=== PATIENT | female | born 1980 | race Caucasian/White ===

== ENCOUNTER 2021-06-20 12:35 | Emergency (ER) | payer OTHER, SELFPAY ==
[2021-06-20 13:05] VITALS: BP 101/71; PULSE 92; RESP 16; TEMP 36.7; O2SAT 99
[2021-06-20 13:20] VITALS: BP 101/71; PULSE 92; RESP 16; TEMP 36.7; O2SAT 99
--- NOTE | 2021-06-20 13:55 | ED.SKABFB ---
HPI - Skin/Abscess/Foreign Bdy General Chief complaint: Skin/Abscess/Foreign Body Stated complaint: rash Time Seen by Provider: 06/20/21 13:55 Source: patient Mode of arrival: ambulatory Limitations: no limitations History of Present Illness HPI narrative: Ana Armstrong is a 41 yo female with no PMH who comes to express care with hives on face eyes and extremities and and torso that started 2 days ago; took Benadryl last night but helped with the itching but the hives are still present although somewhat flatter according to the . Patient is unaware of any allergies but has been taking Mucinex day and night since diagnosed over a week ago with Covid, stopped taking it after a few days but has taken a couple doses in the last 2 days. Discussed her symptoms and how the fatigue myalgias are all within normal range of Covid symptoms Related Data Allergies Allergy/AdvReac Type Severity Reaction Status Date / Time No Known Allergies Allergy Verified 04/23/14 15:06 Review of Systems Review of Systems: CONSTITUTIONAL: Denies fever, chills, sweats. EYES: Denies visual changes, redness, discharge. ENT: Denies rhinorrhea, congestion, sore throat, otalgia. CARDIOVASCULAR: Denies chest pain, palpitations, edema. RESPIRATORY: Denies dyspnea, wheezing, cough GASTROINTESTINAL: Denies abdominal pain, nausea, vomiting, diarrhea. GENITOURINARY: Denies dysuria, hematuria, abnormal discharge SKIN: Diffuse hives over torso and extremities, including face NEUROLOGIC: Denies numbness, or focal weakness. PSYCHIATRIC: Denies anxiety or depression. PMFSH Past Medical History Medical History No acute medical problems Family History Family History Mother Patient's mother is in good health Father Patient's father is in good health Sibling Patient's brother is in good health Social History Social History Alcohol intake: never Comments At time of signature, I agree with nursing past medical, surgical, social and family history. There is no relevant family history pertinent to the presenting complaint. Exam Narrative: GENERAL: This is a well-nourished, well-developed patient, in mild distress. HEAD: normocephalic, atraumatic. EYES: Sclera clear/white. Vision is grossly intact. EARS: External ears normal, auditory canals clear and without drainage, TMs normal without perforation. Hearing grossly intact. NOSE: External nose normal without nasal discharge, nares without redness, no rhinorrhea. THROAT: Mucous membranes moist, posterior pharynx pink, no ulcers or lesions in mouth NECK: Neck supple, non-tender CARDIOVASCULAR: Regular rate and rhythm without murmurs, gallops, or rubs. RESPIRATORY: Clear to auscultation. Breath sounds equal bilaterally. No wheezes, rales, or rhonchi. GASTROINTESTINAL: Abdomen soft, non-tender, SKIN: warm, intact with with diffuse large white hives all over torso and extremities and over right arm NEURO: awake, alert, and oriented to person, place and time. There were no obvious focal neurologic abnormalities. Steady gait EXTREMITIES: Normal range of motion. BACK: Nontender without deformity Course Course Emergency Course: Patient comes with large of hives over extremities and torso this and she reports that her ears and eyes were puffy prior to taking Benadryl the night before Given Solu-Medrol 80 mg IM Start on Medrol Dosepak, continue Benadryl and Pepcid Follow-up with primary care physician Vital Signs Vital signs: Vital Signs Temperature 98.1 F 06/20/21 13:05 Pulse Rate 92 06/20/21 13:05 Respiratory Rate 16 06/20/21 13:05 Blood Pressure 101/71 06/20/21 13:05 Pulse Oximetry 99 06/20/21 13:05 Temperature 98.1 F 06/20/21 13:20 Pulse Rate 92 06/20/21 13:20 Respiratory Rate 16 06/20/21 13:20 Blood Pressure 1
[2021-06-20] MEDS: methylPREDNISolone SOD SUCC 125 MG VIAL 80 MG IM (14:26)
== END 2021-06-20 14:49 | disposition home or self-care (01) ==
PROVIDERS: Emergency Provider Nurse Practitioner
DX: L50.1 Idiopathic urticaria (principal)
CPT/HCPCS: 96372; 99213; G0463; J2930

== ENCOUNTER 2022-05-17 20:59 | Emergency (ER) | payer OTHER, SELFPAY ==
--- NOTE | ~2022-05-17 | XR_ITS ---
EXAMINATION: XR chest 2V Exam Date/Time: 05/17/2022 21:50 CDT HISTORY: chest pain Comparison: None available. RESULT: Lines, tubes, and devices: None. Lungs and pleura: Clear. Cardiomediastinal silhouette: Normal. Other: No acute osseous or upper abdominal finding. IMPRESSION: No acute cardiopulmonary process. Reviewed, dictated and finalized at location K.
[2022-05-17 21:17] VITALS: BP 114/76; PULSE 64; RESP 16; TEMP 36.5; O2SAT 100
--- NOTE | 2022-05-17 21:21 | ECG_ITS ---
Measurements Intervals [place] Rate: 60 P: 145 NV: 157 QRS: 108 QRSD: 88 T: 130 QT: 386 QTc: 388 Interpretive Statements SINUS RHYTHM ARM LEADS REVERSED BASELINE ARTIFACT- I, II, III, AVL, AVF ATYPICAL ECG NO PREVIOUS ECG AVAILABLE FOR COMPARISON Electronically Signed On 05-18-2022 6:35:42 CDT by Asa Keene D.O.
--- NOTE | 2022-05-17 22:45 | ED.GENADULT ---
HPI - General Adult General Chief complaint: Chest Pain Stated complaint: left side hurting Time Seen by Provider: 05/17/22 22:45 History of Present Illness HPI narrative: Patient states that the last few months to probably even years she has had very vague symptoms of feeling quite tired, and she will intermittently have episodes of sharp left-sided chest pain that comes and goes, sometimes it will happen every week, sometimes every few days, and sometimes only every month or so. Has seen her doctor multiple times for this but has not figured out why she is having the symptoms. Also states she has some vulva swelling ongoing for 2 years which she has seen her OBGYN for and will be seeing them again in the next few days. Related Data Allergies Allergy/AdvReac Type Severity Reaction Status Date / Time No Known Allergies Allergy Verified 05/17/22 21:20 Review of Systems Review of Systems: CONST: Fatigue sometimes and warm sometimes HEENT: No sore throat C/V: Chest pain, now resolved RESP: No cough GI: No abdominal pain : Vulva swelling M/S: Back pain, now resolved SKIN: No rash. NEURO: [No focal numbness or weakness] PSYCH: [No depression] [facility] Past Medical History Medical History No acute medical problems Family History Family History Mother Patient's mother is in good health Father Patient's father is in good health Sibling Patient's brother is in good health Social History Social History Alcohol intake: never Exam Narrative: EXAMINATION OF ORGAN SYSTEMS/BODY AREAS: Constitutional: Vital signs per nursing GENERAL:[No acute distress, non-toxic appearing.] HEAD: Normal with no signs of head trauma. EYES: EOMI, conjunctiva normal ENT: Hearing grossly intact LUNGS: Nonlabored breathing. CTAB. No chest wall tenderness HEART: [Regular rate and rhythm]; normal pulses bilaterally ABD: [Soft], [nontender to palpation] EXT: Normal range of motion SKIN: [No rashes or lesions.] NEURO: [Alert and oriented x 3. No gross focal sensory or strength deficits.] PSYCH: Normal affect Course Vital Signs Vital signs: Vital Signs Temperature 97.7 F 05/17/22 21:17 Pulse Rate 64 05/17/22 21:17 Respiratory Rate 16 05/17/22 21:17 Blood Pressure 114/76 05/17/22 21:17 Pulse Oximetry 100 05/17/22 21:17 Oxygen Delivery Room Air 05/17/22 21:17 Temperature 97.7 F 05/17/22 21:17 Pulse Rate 56 L 05/18/22 00:58 Respiratory Rate 18 05/18/22 00:58 Blood Pressure 107/81 05/18/22 00:58 Pulse Oximetry 100 05/18/22 00:58 Oxygen Delivery Room Air 05/17/22 21:17 Medical Decision Making MDM Narrative Medical decision making narrative: ED COURSE AND MEDICAL DECISION MAKIN-year-old female presenting with chest pain which has now resolved. EKG done in triage negative for acute ischemic changes. Cardiac workup is initiated. EKG: Performed in triage and interpreted by me. Limb leads reversed. Normal sinus rhythm. Rate 60. IL normal. QRS duration normal. QTc normal. No pathologic Q waves. No ST segment elevation or depression to suggest acute ischemia. No RV strain pattern. HEART score is 0 with no acute ischemic changes on EKG and negative troponin making ACS unlikely. Wells low risk with negative PERC making PE unlikely. Presentation not consistent with dissection or aneurysm without neurovascular symptoms or pulse deficits and symptoms ongoing for years. CXR negative for mediastinal widening. No abdominal pain or signs of sepsis that would be concerning for esophageal perforation or mediastinitis. No cardiomegaly or JVD to suggest pericardial effusion/tamponade. HEART Score: [0]. On repeat evaluation just prior to discharge, the patient is no acute distress. I had a long discussion with the patient and with shared decision making,
[2022-05-17 22:53] VITALS: RESP 18
[2022-05-17 23:02] LABS: Basophils Absolute Auto 0.1 K/mm3 (0.0-0.1); Eosinophils Absolute Auto 0.1 K/mm3 (0-0.3); Eosinophils Percent Auto 1.3 % (0-4.4); Hematocrit 36.4 % (37.0-47.0); Hemoglobin 11.7 g/dL (12.0-15.0); Immature Granulocyte Absolute 0.01 K/mm3 (0.00-0.031); Immature Granulocyte Percent A 0.2 % (0-0.5); Lymphocytes Percent Auto 47.2 % (18.3-44.2); Mean Corpuscular HGB Conc 32.1 g/dl (32-36); Mean Corpuscular Hemoglobin 28.2 pg (26-34); Mean Corpuscular Volume 87.7 fl (80-100); Mean Platelet Volume 11.6 fl (7.4-10.4); Monocytes Absolute Auto 0.5 K/mm3 (0.1-0.6); Monocytes Percent Auto 8.8 % (2.6-8.5); Neutrophils Absolute Auto 2.6 K/mm3 (1.3-6.7); Neutrophils Percent Auto 41.5 % (45.5-73.1); Platelet Count Result 204 k/mm3 (150-375); Red Blood Count 4.15 M/mm3 (4.2-5.4); Red Cell Distribution Width 13.6 % (11.5-14.5); White Blood Count 6.2 K/mm3 (4.5-10.0)
[2022-05-17 23:12] LABS: Prothrombin Time 12.9 Seconds (11.1-14.7)
[2022-05-17 23:14] LABS: Partial Thromboplastin Time 29.5 SECONDS (22.3-36.8)
[2022-05-17 23:15] LABS: Alanine Aminotransferase 22 U/L (6-35); Albumin Level 3.9 g/dL (3.5-5.1); Alkaline Phosphatase 37 U/L (38-126); Anion Gap 9 mmol/L (8-16); Aspartate Amino Transferase 28 U/L (14-36); Bilirubin,Total 0.5 mg/dL (0.2-1.3); Blood Urea Nitrogen 7 mg/dL (7-17); Calcium 8.6 mg/dL (8.4-10.2); Carbon Dioxide 25 mmol/L (22-30); Chloride 104 mmol/L (98-107); Estimated CRCL calculation 92 ml/min; Estimated Glomerular Filt Rate > 60; Glucose 93 mg/dL (65-110); Lipase 38 U/L (23-300); Potassium 3.7 mmol/L (3.4-5.0); Sodium 138 mmol/L (137-145)
[2022-05-17 23:23] LABS: D Dimer 0.36 ug/mL (<0.48)
[2022-05-17 23:26] LABS: Troponin I < 0.012 ng/mL (0.000-0.034)
[2022-05-18 00:38] LABS: Appearance Urine Slightly Cloudy (Clear); Bilirubin Urine Negative (Negative); Blood Urine Negative (Negative); Color Urine Amber (Yellow); Glucose Urine UA Negative (Negative); Ketones Urine Trace mg/dL (Negative); Leukocyte Esterase Ur Trace LEU/UL (Negative); Nitrate Urine Negative (Negative); Protein Urine Negative (Negative); Specific Grav Ur 1.025 (1.001-1.035); Urobilinogen Urine 0.2 mg/dL (<2.0)
[2022-05-18 00:51] LABS: Troponin I < 0.012 ng/mL (0.000-0.034)
[2022-05-18 00:58] VITALS: BP 107/81; PULSE 56; RESP 18; O2SAT 100
[2022-05-18 01:31] LABS: Add Urine Microscopic? YES
[2022-05-18 01:38] LABS: Bacteria Urine Trace /hpf; Mucus Urine Rare /lpf; Squamous Epithelial Cell Urine Few /hpf (Few); WBC Urine 0-3 /hpf
== END 2022-05-18 01:01 | disposition home or self-care (01) ==
PROVIDERS: Emergency Provider Emergency Medicine
DX: R07.89 Other chest pain (principal); R53.83 Other fatigue
CPT/HCPCS: 36415; 71046; 80053; 81001; 81025; 83690; 84443; 84484; 85025; 85380; 85610; 85730; 93005; 99284

== ENCOUNTER 2022-07-01 09:52 | Outpatient (CLI) | payer OTHER, SELFPAY ==
--- NOTE | ~2022-07-01 | US_ITS ---
Pelvic ultrasound. Clinical History: Left ovarian cyst Technique: Realtime transabdominal and transvaginal scanning of the pelvis was performed. Color flow Doppler and Doppler spectral analysis were performed. Findings: The uterus is anteverted. The endometrial stripe has a thickness of 7 mm. No focal mass is identified. The right ovary measures 2.3 x 1.2 x 1.2 cm. No significant right ovarian or adnexal mass is seen. The left ovary measures 2.7 x 2.1 x 2.0 cm. Small simple left ovarian cysts are likely physiologic in nature, of no clinical significance. Maximum diameter is 1.2 cm. Vascular flow present in both ovaries on Doppler spectral analysis. There is no evidence of free fluid in the cul de sac. Impression: No significant abnormality seen. Small simple left ovarian cysts are physiologic in appearance. Reviewed, dictated and finalized at location [] K CUBER Impression: No significant abnormality seen. Small simple left ovarian cysts are physiologi c in appearance.
== END 2022-07-01 09:53 | disposition home or self-care (01) ==
PROVIDERS: Visit Provider Obstetrics & Gynecology
DX: N83.292 Other ovarian cyst, left side (principal)
CPT/HCPCS: 76830; 76856

== ENCOUNTER 2024-03-18 14:35 | Emergency (ER) | payer OTHER, SELFPAY ==
[2024-03-18 14:45] VITALS: BP 99/72; PULSE 112; RESP 19; TEMP 37; O2SAT 97
[2024-03-18 15:07] LABS: EDINFLUASCREEN Negative; EDINFLUBSCREEN Negative
--- NOTE | 2024-03-18 15:24 | ED.URI ---
HPI - URI/Sore Throat General Chief Complaint: Upper Respiratory Infection Stated Complaint: COVID+ Time Seen by Provider: 03/18/24 15:25 Source: patient, RN notes reviewed and old records reviewed Mode of arrival: ambulatory Limitations: no limitations History of Present Illness HPI Narrative: Patient presents with complaints of cough, fever, runny nose, sore throat for 3 days. She has been taking ibuprofen with moderate relief. She states that once knee a ibuprofen wears off symptoms re-emerged. She does also complain of some headache and body aches. She is requesting antibiotics Related Data Home Medications Medication Instructions Recorded Confirmed No Home Medications 03/18/24 03/18/24 Allergies Allergy/AdvReac Type Severity Reaction Status Date / Time No Known Allergies Allergy Verified 03/18/24 15:23 Review of Systems Review of Systems: All systems reviewed & are unremarkable except as noted in HPI and below Constitutional: Constitutional: Reports as per HPI, Reports no additional constitutional complaints, Reports body ache(s), Reports chills, Reports fever(s) and Reports lethargy ENT: Reports system reviewed and no additional complaints, except as documented, Reports nasal discharge and Reports sore throat Cardiovascular: Cardiovascular: Reports no additional cardiovascular complaints Respiratory: Respiratory: Reports as per HPI, Reports no additional respiratory complaints and Reports cough Gastrointestinal: Gastrointestinal: Reports no additional gastrointestinal complaints PMF Past Medical History Medical History No acute medical problems Family History Family History Mother Patient's mother is in good health Father Patient's father is in good health Sibling Patient's brother is in good health Social History Social History Alcohol intake: never Exam Const: General: cooperative, no acute distress, alert and awake Orientation/consciousness: oriented to person, oriented to place and oriented to time HENMT: Head: normal to inspection Ears: TM's normal bilaterally Face/Nose/Sinus: Nasal discharge present clear Mouth: Yes moist mucous membranes Throat: posterior oropharynx normal Resp: Effort & Inspection: normal respiratory effort and able to speak in complete sentences Auscultation: clear to auscultation bilaterally, no crackles, no rales, no rhonchi and no wheezes Cardio: Palpation: normal PMI Rate: regular rate Rhythm: regular rhythm Heart sounds: S1 normal heart sound present and S2 normal heart sound present Neuro: General: oriented to person, oriented to place and oriented to time Cranial nerves: Yes CN's II-XII intact bilaterally Psych: Appearance: grossly normal Thought process: Normal thought process present Insight: Good insight present (Psych) Judgement: Good judgement present (Psych) Course Course Level of Care: Express Care Visit Vital Signs Vital signs: Vital Signs Temperature 98.6 F 03/18/24 14:45 Pulse Rate 112 H 03/18/24 14:45 Respiratory Rate 19 03/18/24 14:45 Blood Pressure 99/72 L 03/18/24 14:45 Pulse Oximetry 97 03/18/24 14:45 Oxygen Delivery Room Air 03/18/24 14:45 Temperature 98.6 F 03/18/24 14:45 Pulse Rate 112 H 03/18/24 14:45 Respiratory Rate 19 03/18/24 14:45 Blood Pressure 99/72 L 03/18/24 14:45 Pulse Oximetry 97 03/18/24 14:45 Oxygen Delivery Room Air 03/18/24 14:45 MDM - URI/Sore Throat MDM Narrative Medical decision making narrative: Patient positive COVID, negative flu. Advised to treat current illness symptomatic Gracia. Patient does verbalize displeasure over not receiving antibiotics. She was advised that antibiotics will not be effective in treating COVID-19. She then begins to question about Paxlovid. She is advised th
== END 2024-03-18 15:38 | disposition home or self-care (01) ==
PROVIDERS: Emergency Provider Nurse Practitioner Family
DX: U07.1 COVID-19 (principal)
CPT/HCPCS: 87426; 87804; 99213; G0463